=== PATIENT | male | born 1960 | race Caucasian/White ===

== ENCOUNTER 2022-08-06 09:20 | Outpatient (CLI) | payer BC, SELFPAY | END 2022-08-06 09:21 | disposition home or self-care (01) | LOC: NFLDREF 08-07 00:47 | PROVIDERS: PCP Family Medicine; Referring Provider Family Medicine; Visit Provider Family Medicine | DX: Z13.6 Encounter for screening for cardiovascular disorders (principal) | CPT/HCPCS: 80061 ==

== ENCOUNTER 2023-09-05 07:55 | Outpatient (CLI) | payer BC, SELFPAY | END 2023-09-05 07:56 | disposition home or self-care (01) | LOC: NFLDREF 09-08 06:52 | PROVIDERS: PCP Family Medicine; Referring Provider Family Medicine; Visit Provider Family Medicine | DX: E78.5 Hyperlipidemia, unspecified (principal); Z12.5 Encounter for screening for malignant neoplasm of prostate; Z13.228 Encounter for screening for other metabolic disorders | CPT/HCPCS: 80053; 80061; G0103 ==

== ENCOUNTER 2024-12-10 07:30 | Outpatient (CLI) | payer BC, SELFPAY | END 2024-12-10 07:31 | disposition home or self-care (01) | LOC: NFLDREF 12-16 04:00 | PROVIDERS: PCP Family Medicine; Referring Provider Family Medicine; Visit Provider Family Medicine | DX: E78.5 Hyperlipidemia, unspecified (principal); Z12.5 Encounter for screening for malignant neoplasm of prostate | CPT/HCPCS: 80053; 80061; G0103 ==

== ENCOUNTER 2024-12-30 08:02 | Outpatient (CLI) | payer BC, SELFPAY ==
--- NOTE | 2024-12-30 09:27 | P.ANES_ITS ---
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
--- NOTE | 2024-12-30 09:27 | W.ANESCHARGE ---
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
--- NOTE | 2024-12-30 11:32 | P.ANES_ITS ---
Anesthesia Charges Start Date/Time Anesthesia Start Date: 12/30/24 Anesthesia Start Time: 08:50 Stop Date/Time Anesthesia Stop Date: 12/30/24 Anesthesia Stop Time: 09:26 Coding CPT Codes CPT Codes: EMELIA LWR INTST NDGA NOS - [id number] ([id number]) P1 - NORMAL HEALTHY PATIENT, QK - MINING HELPER 2-4 CNCRNT ANES PROC, QX - CONCIERGE RECEPTIONIST SVC W/ MED DIRECTION
--- NOTE | 2024-12-30 11:32 | W.ANESCHARGE ---
Anesthesia Charges Start Date/Time Anesthesia Start Date: 12/30/24 Anesthesia Start Time: 08:50 Stop Date/Time Anesthesia Stop Date: 12/30/24 Anesthesia Stop Time: 09:26 Coding CPT Codes CPT Codes: EMELIA LWR INTST NDIA NOS - [id number] ([id number]) P1 - NORMAL HEALTHY PATIENT, QK - ARCHIVES DIRECTOR 2-4 CNCRNT ANES PROC, QX - DATA ENTRY SUPERVISOR SVC W/ MED DIRECTION
== END 2024-12-30 08:03 | disposition home or self-care (01) ==
LOC: OP CLINIC 08:02
PROVIDERS: PCP Family Medicine; Visit Provider Surgery
DX: Z12.11 Encounter for screening for malignant neoplasm of colon (principal); Z83.719 Family history of colon polyps, unspecified; K57.30 Diverticulosis of large intestine without perforation or abscess without bleeding; D12.3 Benign neoplasm of transverse colon; D12.2 Benign neoplasm of ascending colon; K62.1 Rectal polyp; K63.5 Polyp of colon
CPT/HCPCS: 00811; 00812; 45385; 88305; J2704

== ENCOUNTER 2025-01-18 07:16 | Outpatient (CLI) | payer BC, SELFPAY ==
--- NOTE | 2025-01-18 07:15 | CRLHL7_ITS ---
For Patients: As a result of the Cures Act, medical imaging exams and procedure reports are released immediately into your electronic medical record. You may view this report before your referring provider. If you have questions, please contact your health care provider. Examination: US abdominal aorta Indication: Abdominal aortic aneurysm screening. Technique: Posadas scale and color Doppler images of the aorta and common iliac arteries are obtained. Comparison: None Findings: Proximal aorta: 2.9 x 2.9 cm Mid aorta: 2.2 x 2.2 cm Distal aorta: 2.1 x 2.1 cm Right common iliac artery: 1.3 x 1.3 cm Left common iliac artery: 1.3 x 1.3 cm Impression: No abdominal aortic aneurysm. Dictated by José Sweeney MD @ 01/18/2025 8:35:48 AM (Electronically Signed)
== END 2025-01-18 07:17 | disposition home or self-care (01) ==
LOC: US 07:16
PROVIDERS: PCP Family Medicine; Visit Provider Family Medicine
DX: Z13.6 Encounter for screening for cardiovascular disorders (principal)
CPT/HCPCS: 76706